=== PATIENT | female | born 1960 | race Hispanic/Latino ===

== ENCOUNTER 2021-04-01 19:48 | Emergency (ER) | payer OTHER, SELFPAY ==
[2021-04-01] MEDS ORDERED: HYDROcodone/Acetaminophen 10/325 mg Tablet ONE (20:20)
== END 2021-04-01 23:15 | disposition home or self-care (01) ==
LOC: CSHERS 19:48
DX: S92.335A Nondisplaced fracture of third metatarsal bone, left foot, initial encounter for closed fracture (principal); S00.03XA Contusion of scalp, initial encounter; W01.10XA Fall on same level from slipping, tripping and stumbling with subsequent striking against unspecified object, initial encounter
CPT/HCPCS: 70450; 72125

== ENCOUNTER 2022-02-11 08:44 | Observation (INO) | payer MEDICARE ==
[2022-02-11 09:43] LABS: #Basophils 0.1 10x3/uL (0.0-0.2); #Eosinphils 0.1 10x3/uL (0.0-0.5); #Monocytes 1.1 10x3/uL (0.0-1.1); #Neutrophils 5.5 10x3/uL (1.5-8.4); %Basophils 0.8 % (0.0-2.0); %Eosinophils 0.5 % (0.0-6.0); %Monocytes 9.6 % (0.0-10.0); %Neutrophils 49.6 % (40.0-75.0); Hemoglobin 15.1 g/dL (12.0-15.5); Mean Corpuscular HGB CONC 36.5 g/dL (32.0-36.0); Mean Corpuscular Hemoglobin 32.1 pg (27.0-33.0); Mean Corpuscular Volume 87.9 fl (81.6-98.3); Mean Platelet Volume 12.1 fl (7.4-10.4); Platelet Count 207 10x3/uL (150-450); RBC Distribution Width 11.9 % (11.5-14.5); Red Blood Cell (RBC) Count 4.71 10x6/uL (3.90-5.03)
[2022-02-11 09:55] LABS: Bilirubin Neg (Negative); Blood, Urine 25 (Negative); Clarity Clear (Clear); Glucose, Urine (Dipstick) Normal (Negative); Ketone, Urine Negative (Negative); Leukocyte Negative (Negative); Nitrite Negative (Negative); Protein, Urine (Dipstick) Negative (Neg-Trace); Urobilinogen Normal mg/dL (Less than 2)
[2022-02-11 10:02] LABS: Amphetamine Not Detected (NotDetected); Barbiturates Screen Not Detected (NotDetected); Benzodiazepine Screen Not Detected (NotDetected); Cocaine Metabolite Screen Not Detected (NotDetected); Methadone Not Detected (NotDetected); Methamphetamine Not Detected (NotDetected); Opiate Screen Not Detected (NotDetected); Oxycodone Screen Not Detected (NotDetected); Phencyclidine (PCP) Not Detected (NotDetected); THC/Cannabinoid Screen Not Detected (NotDetected); Tricyclic Screen Not Detected (NotDetected)
[2022-02-11 10:03] LABS: Acetaminophen Less than 10.0 mcg/mL (10.0-30.0); Alcohol 77 mg/dL (Less than 10); Salicylate Less than 8.0 mg/dL (15.0-30.0)
[2022-02-11 10:05] LABS: ALT (SGPT) 14 U/L (8-55); AST (SGOT) 33 U/L (5-34); Alkaline Phosphatase 81 U/L (40-110); Anion Gap 21 mmol/L (10-20); BUN (Urea Nitrogen) 5 mg/dL (9.8-20.1); Calc. Creatinine Clearance 0 mL/min (70-130); Calcium 8.6 mg/dL (7.8-10.44); Carbon Dioxide 14 mmol/L (23-31); Chloride 95 mmol/L (98-107); Estimated GFR 98; Globulin 3.1 g/dL (2.4-3.5); Glucose 108 mg/dL (80-115); Protein, Total 7.1 g/dL (5.8-8.1); Sodium 126 mmol/L (136-145)
[2022-02-11 10:07] LABS: Bacteria/HPF Rare-Few HPF (None Seen); RBC/HPF 0-3 HPF (0-3); Squamous Epithelial 0-3 HPF (0-3); WBC/HPF 0-3 HPF (0-3)
[2022-02-11 10:52] LABS: SARS-CoV-2 NAA Rapid Test Not Detected (NotDetected)
[2022-02-11] MEDS ORDERED: Ketorolac Tromethamine 30 MG/ML VIAL ONE (11:28)
[2022-02-11] MEDS ORDERED: Metoclopramide HCl 10 MG/2 ML VIAL ONE (11:29)
[2022-02-11] MEDS ORDERED: Lorazepam 2 MG/ML VIAL ONE (11:29)
[2022-02-11 12:40] LABS: Lactic Acid 1.2 mmol/L (0.5-2.2)
[2022-02-11] MEDS ORDERED: chlordiazePOXIDE HCl 25 MG CAP ONE (13:47)
[2022-02-11 14:49] LABS: Anion Gap 14 mmol/L (10-20); BUN (Urea Nitrogen) 4 mg/dL (9.8-20.1); Calc. Creatinine Clearance 0 mL/min (70-130); Carbon Dioxide 20 mmol/L (23-31); Chloride 104 mmol/L (98-107); Estimated GFR 100; Glucose 106 mg/dL (80-115); Potassium 4.3 mmol/L (3.5-5.1); Sodium 134 mmol/L (136-145)
[2022-02-11] MEDS ORDERED: Lorazepam 2 MG/ML VIAL IM PRN (15:42)
[2022-02-11] MEDS ORDERED: Acetaminophen 650 MG Suppository PR PRN (15:42)
[2022-02-11] MEDS ORDERED: Ondansetron ODT 4 MG TAB PO PRN ×2 (15:42)
[2022-02-11] MEDS ORDERED: Acetaminophen 325 MG TAB PO PRN (15:42)
[2022-02-11] MEDS ORDERED: Ondansetron PF 4 MG/2 ML Vial IVP PRN (15:42)
[2022-02-11] MEDS ORDERED: Lorazepam 1 MG TAB PO PRN (15:42)
[2022-02-11] MEDS ORDERED: Electrolyte Replacement Protocol 1 EACH FS SCH (15:45)
[2022-02-11 16:22] LABS: Hemoglobin 14.2 g/dL (12.0-15.5); MDiff Complete? YES; Mean Corpuscular Hemoglobin 31.7 pg (27.0-33.0); Mean Corpuscular Volume 90.6 fl (81.6-98.3); Mean Platelet Volume 11.3 fl (7.4-10.4); Platelet Count 190 10x3/uL (150-450); RBC Distribution Width 12.2 % (11.5-14.5); Red Blood Cell (RBC) Count 4.48 10x6/uL (3.90-5.03)
[2022-02-11 16:31] LABS: ALT (SGPT) 11 U/L (8-55); AST (SGOT) 28 U/L (5-34); Albumin 3.6 g/dL (3.4-4.8); Alkaline Phosphatase 73 U/L (40-110); Anion Gap 11 mmol/L (10-20); BUN (Urea Nitrogen) 4 mg/dL (9.8-20.1); Bilirubin, Direct 0.6 mg/dL (0.1-0.3); Bilirubin, Total 1.6 mg/dL (0.2-1.2); Calc. Creatinine Clearance 0 mL/min (70-130); Calcium 8.1 mg/dL (7.8-10.44); Carbon Dioxide 22 mmol/L (23-31); Chloride 104 mmol/L (98-107); Estimated GFR 98; Globulin 2.6 g/dL (2.4-3.5); Glucose 100 mg/dL (80-115); Magnesium 1.7 mg/dL (1.6-2.6); Phosphorus 3.6 mg/dL (2.3-4.7); Potassium 4.1 mmol/L (3.5-5.1); Protein, Total 6.2 g/dL (5.8-8.1); Sodium 133 mmol/L (136-145)
[2022-02-11 16:44] LABS: Lymphocytes 16 % (21-51); Monocytes 4 % (0-10); Neutrophil 80 % (42-75); Platelet Morphology Comment Appears Adequate
[2022-02-11 16:52] LABS: Syphilis Antibody Nonreactive (Nonreactive); Syphilis Antibody Index 0.07 S/CO (<1.00 Non-Reactive)
[2022-02-11 16:53] LABS: Actual Bicarbonate (HCO3v) 21 mEq/L (22-28); Calcium, Ionized (venous) 0.92 mmol/L (1.16-1.32); Chloride (VBG) 107 mmol/L (98-106); Hemoglobin (Hb) 14.7 g/dL (11.7-16.0); Potassium (VBG) 6.05 mmol/L (3.70-5.30); Puncture Site Other Site; Sodium 127.7 mmol/L (133-146); pH (venous) 7.49 (7.32-7.43)
[2022-02-11] MEDS ORDERED: Multivit, Therapeutic 1 TAB PO SCH (18:30)
[2022-02-11] MEDS ORDERED: Folic Acid 1 MG TAB PO SCH (18:30)
[2022-02-11] MEDS ORDERED: Thiamine HCl 200 MG/2 ML VIAL SLOW IVP SCH (18:30)
[2022-02-11] MEDS ORDERED: Magnesium 2 GM/50 ML(in water) 2 GM in Premix Bag 1 BAG IVPB SCH (20:30)
[2022-02-11 20:50] VITALS: BMI 26.2
[2022-02-12 05:50] LABS: Anion Gap 11 mmol/L (10-20); BUN (Urea Nitrogen) 6 mg/dL (9.8-20.1); Calc. Creatinine Clearance 83 mL/min (70-130); Calcium 8.9 mg/dL (7.8-10.44); Carbon Dioxide 24 mmol/L (23-31); Chloride 103 mmol/L (98-107); Estimated GFR 98; Glucose 85 mg/dL (80-115); Sodium 134 mmol/L (136-145)
[2022-02-12 06:02] LABS: #Basophils 0.1 10x3/uL (0.0-0.2); #Eosinphils 0.1 10x3/uL (0.0-0.5); #Monocytes 1.2 10x3/uL (0.0-1.1); #Neutrophils 7.9 10x3/uL (1.5-8.4); %Basophils 0.6 % (0.0-2.0); %Eosinophils 0.8 % (0.0-6.0); %Lymphocytes 22.8 % (18.0-47.0); %Monocytes 9.7 % (0.0-10.0); %Neutrophils 65.8 % (40.0-75.0); Hemoglobin 14.4 g/dL (12.0-15.5); Mean Corpuscular HGB CONC 34.3 g/dL (32.0-36.0); Mean Corpuscular Hemoglobin 31.2 pg (27.0-33.0); Mean Corpuscular Volume 91.1 fl (81.6-98.3); Mean Platelet Volume 12.4 fl (7.4-10.4); Platelet Count 190 10x3/uL (150-450); RBC Distribution Width 12.6 % (11.5-14.5); Red Blood Cell (RBC) Count 4.61 10x6/uL (3.90-5.03)
[2022-02-12] MEDS: Cepastat Lozenges 1 LOZ PO PRN ×2 (06:24→09:38)
[2022-02-12] MEDS ORDERED: Folic Acid 1 MG TAB PO SCH (09:00)
[2022-02-12] MEDS ORDERED: Multivit, Therapeutic 1 TAB PO SCH (09:00)
[2022-02-12 11:49] VITALS: BP 136/64; TEMP 97.9
[2022-02-12] MEDS ORDERED: Lorazepam 1 MG TAB PO PRN (15:42)
[2022-02-13] MEDS ORDERED: Lorazepam 1 MG TAB PO PRN (15:42)
[2022-02-14] MEDS ORDERED: Lorazepam 0.5 MG TAB PO PRN (15:42)
[2022-02-14] MEDS ORDERED: Thiamine 100 MG TAB PO SCH (18:30)
== END 2022-02-12 14:15 | disposition left against medical advice (07) ==
LOC: CSHERS 08:44 → CSHTELE 17:27
PROVIDERS: ADMIT Family Medicine; ATTEND Family Medicine
DX: F10.929 Alcohol use, unspecified with intoxication, unspecified (principal); J43.9 Emphysema, unspecified; Z20.822 Contact with and (suspected) exposure to COVID-19; E87.1 Hypo-osmolality and hyponatremia; F20.9 Schizophrenia, unspecified; Y90.3 Blood alcohol level of 60-79 mg/100 ml; F17.200 Nicotine dependence, unspecified, uncomplicated; Z79.899 Other long term (current) drug therapy
CPT/HCPCS: 0240U; 51701; 70450; 71045; 80048 ×2; 80306; 80307; 82248; 82805; 83605; 83735; 83930; 83935; 84100; 84300; 84484; 84560; 85025; 86780; 93005; 94760 ×2; 96374; 96375 ×2; 99285; G0378 ×3; 36415; 80053; 81003; 81015; 84443; J1885; J2060; J2765; J3411; J3475